=== PATIENT | female | born 1975 | race Caucasian/White ===

== ENCOUNTER → 2017-09-17 | Outpatient (CLI) | payer OTHER | LOC: CIMAGING 08:27 | PROVIDERS: ATTEND Family Medicine | DX: Z12.31 Encounter for screening mammogram for malignant neoplasm of breast (principal) | CPT/HCPCS: G0202 ==

== ENCOUNTER → 2017-11-05 | Outpatient (CLI) | payer OTHER | LOC: CIMAGING 08:44 | PROVIDERS: ATTEND Physician Assistant Medical | DX: K76.9 Liver disease, unspecified (principal) | CPT/HCPCS: 76705-PO ==

== ENCOUNTER 2018-05-16 07:46 | Emergency (ER) | payer OTHER ==
--- NOTE | 2018-05-16 07:59 | EDPHY ---
H & P Stated Complaint: R flank pain x 1 year, recent UTI x 1 week ago. Time Seen by Provider: 05/16/18 07:59 HPI/ROS: CHIEF COMPLAINT: Right flank pain HISTORY OF PRESENT ILLNESS: Medically stable 42-year-old female who does have a local family physician who has been evaluated for similar pains this past September. Upon reveiw of old charts from Sep and Oct, she is noted to have a normal chemistry panel, normal CBC, and had an outpatient ultrasound of the abdomen performed in October. This did not show any hydronephrosis or gallstones, though did show a fatty liver - her LFTs in September were normal. She notes the pain has been ongoing for about a year. She states virtually every day. It is there has a steady ache plenty times moderate in nature. However she never takes any Advil or Aleve or Tylenol to medicate the pain. 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 That stated, none of the cardinal movements that I gave her during my physical exam such as straight leg raising, truncal twisting, back extension , as well as coughing clearing her throat aggravate the pain here at this point She with this today at the pain is ongoing. It is moderate to severe nature. She is worried that she might have a kidney infection as she was recently treated for a cystitis. Furthermore, last night it was particularly bad around 8 o'clock so much so that she actually had a take some Advil, which is very unlike her, before she went to bed. She was seen by PCP an on May 06 she had a outpatient urinalysis which did grow E coli, sensitive to the Bactrim that she was on; old laboratories were reviewed. She readily admits drinking heavily. This is not a daily a course of events but several days in the week where she will have 6 beers as well as several shots of Tequila. She believes that this is a problem for though never really experiences alcohol withdrawal in terms of tremors. However there aere frequently times where she has hung over though no vomiting, but does have daily nausea and anorexia. Her dad has paraplegia and lives with her, she is not involved in helping lift or transfer. In the last 5 weeks she has had 3 episodes of menstrual cycles. 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 Eyes: No discharge No diplopia ENT: No sore throat. Cardiovascular: No chest pain, no palpitations. Respiratory: No cough, shortness of breath, or wheezing. Gastrointestinal: Though she is nauseated every day and has anorexia always, no vomiting or diarrhea. No abdominal pain. She is yet ever have a GI workup Genitourinary: No hematuria or frequency. Musculoskeletal: See above Skin: No rashes. Neurological: No headache. 10 point ROS otherwise negative Source: Patient Exam Limitations: No limitations - Personal History LMP (Females 10-55): Now Current Tetanus Diphtheria and Acellular Pertussis (TDAP): Yes Tetanus Vaccine Date: within 10 years - Medical/Surgical History Hx Asthma: No Hx Chronic Respiratory Disease: No Hx Diabetes: No Hx Cardiac Disease: No Hx Renal Disease: No Hx Cirrhosis: No Hx Alcoholism: No Hx HIV/AIDS: No Hx Splenectomy or Spleen Trauma: No Other PMH: Denies - Family History Significant Family History: No pertinent family hx (Mother of at 69 of cranial facial cancer with metastasis. Father his paraplegic and it at home but does not require much care from her directly) - Social History Smoking Status: Never smoked Alcohol Use: Heavy Drug Use: None - Physical Exam Exam: General Appearance: Alert, no distress. Afebrile. Normal phonation. No respiratory distress. Good color, afebrile Eyes: Pupils equal and round no pallor or injection. No icterus ENT, Mouth: Mucous membranes slightly dry Pharynx without erythema or exudate. TM Clear. Neck: No adenopathy. Supple. No JVD. Trachea in midline. Respiratory: There are no retractions, lungs are clear to auscultation. Chest wall: Nontender to palpation. No crepitus. Cardiovascular: Regular rate and rhythm, no murmur Abdomen: Soft and nontender, no masses, bowel sounds normal. While she does say as I press the right upper quadrant in the anterior axial line that that is the location of the pain I am not able to elicit tenderness. Neurological: Ox3. No motor weakness. Sensation intact. Gait nl. Skin: Warm and dry, no rashes. Musculoskeletal: No joint swelling. Extremities: No edema. Homans sign negative. No cords. Psychiatric: Normal affect. Patient is oriented X 3. There is no agitation Constitutional: Initial Vital Signs Temperature (C) 36.8 C 05/16/18 07:55 Heart Rate 52 L 05/16/18 07:55 Respiratory Rate 16 05/16/18 07:55 Blood Pressure 142/98 H 05/16/18 07:55 O2 Sat (%) 100 05/16/18 07:55 O2 Delivery Mode Room Air Allergies/Adverse Reactions: No Known Allergies Allergy (Verified 05/16/18 07:55) Home Medications: Medication Instructions Recorded NK [No Known Home Meds] 05/16/18 Medical Decision Making - Diagnostics Imaging Results: Imaging Impressions Abdomen/Pelvis CT 05/16/18 10:41 Impression: No source for right sided pain identified. Results called and discussed with Nilton Lazo MD, at 05/16/2018 11:21 Attention: This CT examination is specifically designed to evaluate patients who are clinically suspected of having acute obstructive uropathy. This examination does not use radiographic contrast, and as such, provides only a limited evaluation of the abdomen, pelvis and retroperitoneum. If there is further clinical suspicion for pathological conditions other than obstructive uropathy, a complete CT evaluation of the abdomen and pelvis utilizing intravenous, oral, and rectal contrast should be considered. General information for patients regarding this examination can be found at [email or web address]. If you have questions or comments about this report, please contact me at (hospital) or [phone] (cell). Imaging: Discussed imaging studies w/ funeral car driver Radiologist ED Course/Re-evaluation: After initial interview we discussed options as well as general concerns. She herself is concerned for her drinking and that may explain her chronic anorexia and almost daily nausea. however she does not experience reflux nor tried therapeutic trials of PPI or antacids, nor is she taking NSAIDS that would put her at increased risk of APD. Going forward I have recommended a trial of an OTC PPI as well as abstinance from alcohol and follow up with GI for consideration of an EGD given her age. She did collect the urine in a correct fashion, aptly describing a clean-catch midstream technique. This does show 2+ blood. No infectious elements such as nitrites or leukocytes esterase. However, a formal urinalysis requested to get a microscopic. This will clarify as to whether it is a full on clean-catch midstream. Thereafter we have discussed doing a CT scan either with or without IV contrast based upon those results respectively. Laboratory studies here reveal followin+ blood in the urine on dip Negative test Normal hemogram, normal CBC, normal white count Normal comprehensive panel. Normal liver functions She complains of having a dry mouth and thus was given an IV fluid 1 L normal saline for volume depletion Ultimately, urinalysis showed: 2+ hematuria with normal concentration without signs of contamination. Thus a CT scan was performed, without IV contrast. I discussed the findings with the radiologist, as well as reviewing the films on the [facility] system myself. The radiologist related the following: Essentially normal No signs of fatty liver No signs of hydronephrosis or hydro ureter Findings relate with the patient. We made a plan together for her to cut back on her drinking, consider PPI for acid peptic disease and follow-up Gastroenterology. Furthermore given the hematuria as noted in the findings here , she is to see her PCP. Differential Diagnosis: Differential diagnosis includes, but is not limited to: Gastroenteritis, dehydration, diverticulitis, hepatitis, pancreatitis, renal colic, kidney stones, ureterolithiasis, cholecystitis, appendicitis, gastritis, mesenteric adenitis, food poisoning, bacterial dysentery. - Data Points Laboratory Results: 05/16/18 05/16/18 09:00 08:55 POC Sodium 141 mEq/L mEq/L (135-145) POC Potassium 3.8 mEq/L mEq/L (3.3-5.0) POC Chloride 103.0 mEq/L mEq/L (97-110) POC Total CO2 26 mEq/L mEq/L (22-31) POC BUN 6 mg/dL L mg/dL (7-23) POC Creatinine 0.9 mg/dL mg/dL (0.6-1.0) POC Glucose 94 mg/dL mg/dL (70-100) POC Calcium 9.6 mg/dL mg/dL (8.5-10.4) POC Total Bilirubin 1.2 mg/dL mg/dL (0.1-1.4) POC AST 35 IU/L IU/L (14-46) POC ALT 38 IU/L IU/L (9-52) POC Alk Phosphatase 46 IU/L IU/L (38-126) POC Total Protein 6.9 g/dL g/dL (6.3-8.2) POC Albumin 3.9 g/dL g/dL (3.5-5.0) Urine Color COLORLESS Urine Appearance CLEAR Urine pH 7.0 (5.0-7.5) Ur Specific [place] 1.004 (1.002-1.030) Urine Protein NEGATIVE (NEGATIVE) Urine Ketones NEGATIVE (NEGATIVE) Urine Blood 2+ H (NEGATIVE) Urine Nitrate NEGATIVE (NEGATIVE) Urine Bilirubin NEGATIVE (NEGATIVE) Urine Urobilinogen NEGATIVE EU EU (0.2-1.0) Ur Leukocyte Esterase NEGATIVE (NEGATIVE) Urine RBC 1-3 /hpf /hpf (0-3) Urine WBC 1-3 /hpf /hpf (0-3) Ur Epithelial Cells TRACE /lpf /lpf (NONE-1+) Urine Mucus TRACE /lpf /lpf (NONE-1+) Urine Glucose NEGATIVE (NEGATIVE) Medications Given: Discontinued Medications Sodium Chloride (Ns) 1,000 mls @ 0 mls/hr IV ONCE ONE PRN Reason: Wide Open Stop: 05/16/18 08:23 Last Admin: 05/16/18 08:22 Dose: 1,000 mls Point of Care Test Results: CBC CBC Collection Date 05/16/18 CBC Collection Time 08:15 WBC 5.1 RBC 5.18 HGB 15.5 HCT 45.8 PLT 227 Neut # 2.3 Neut 45.0 LYMPH # 2.6 LYMPH 50.3 Other WBC # 0.2 Other WBC 4.7 MCV 88.4 Chemistry 05/16/18 08:55 POC Sodium 141 mEq/L mEq/L (135-145) POC Potassium 3.8 mEq/L mEq/L (3.3-5.0) POC Chloride 103.0 mEq/L mEq/L (97-110) POC Total CO2 26 mEq/L mEq/L (22-31) POC BUN 6 mg/dL L mg/dL (7-23) POC Creatinine 0.9 mg/dL mg/dL (0.6-1.0) POC Glucose 94 mg/dL mg/dL (70-100) POC Calcium 9.6 mg/dL mg/dL (8.5-10.4) POC Total Bilirubin 1.2 mg/dL mg/dL (0.1-1.4) POC AST 35 IU/L IU/L (14-46) POC ALT 38 IU/L IU/L (9-52) POC Alk Phosphatase 46 IU/L IU/L (38-126) POC Total Protein 6.9 g/dL g/dL (6.3-8.2) POC Albumin 3.9 g/dL g/dL (3.5-5.0) Comprehensive Metabolic Panel CMP Collection Date 05/16/18 CMP Collection Time 08:15 Urine Collection Date 05/16/18 Collection Time 08:00 HCG Results Negative Urine Dip Collection Date 05/16/18 Collection Time 08:00 Specific [place] (1.002-1.030) 1.010 PH (5.0-7.5) 7.0 Leukocytes (Negative) Negative Nitrites (Negative) Negative Protein (Negative) Negative Glucose (Negative) Negative Ketones (Negative) Negative Urobilnogen (0.2-1.0 EU) 0.2 Bilirubin (Negative) Negative Blood (Negative) 2+ Departure - Departure Disposition: Home, Routine, Self-Care Clinical Impression: Flank pain Hematuria Qualifiers: Hematuria type: other microscopic Qualified Code(s): R31.29 - Other microscopic hematuria Condition: Good Instructions: Flank Pain (ED) Additional Instructions: You're abdominal CT scan was normal. However, stomach related problems will not be detected on CT scans. Given your nausea and loss of appetite: 1. Stop all alcohol drinking as well as any caffeine. 2. Take Prilosec, [id number], 20 mg daily, on a fasting stomach in the morning, for the next 4 weeks 3. Contact gastroenterology for follow-up 4. Begin a gentle stretching program to include that area on the right flank 5. Consider seeing a chiropractor 6. Followup the Primary Care in 1-2 weeks Referrals: Dee Gaviria [Primary Care Provider] - As per Instructions Grady Pope MD [Medical Doctor] - 5-7 days, call for appt.
[2018-05-16] MEDS ORDERED: NS 1,000 ML IV ONE (08:22)
[2018-05-16 11:39] VITALS: BP 122/72
== END 2018-05-16 11:38 | disposition home or self-care (01) ==
LOC: CED 07:46
DX: R31.29 Other microscopic hematuria (principal); E86.9 Volume depletion, unspecified
CPT/HCPCS: 74176-PO; 80053-PO